=== PATIENT | female | born 1940 | race Caucasian/White ===

== ENCOUNTER → 2016-12-04 | Day surgery (SDC) | payer OTHER ==
[~2016-12-04] VITALS: Ht 157.4 cm; Wt 77.1 kg
[~2016-12-04] MED LIST: AMLODIPINE BESYL5 MG PO; ASPIRIN81 M1 PO; ATIVAN0.5 MG PO; ATORVASTATIN CA40 M1 PO; BIOTIN10000 MC1 PO; HYDRODIURIL25 MG PO; IBU800 M1 PO; Lopressor25 MG PO; OMEPRAZOLE40 MG PO; RANITIDINE HCL300 M2 PO; [UNRECOGNIZED DRUG - OTHER] PO; [UNRECOGNIZED DRUG - OTHER] PO
--- NOTE | ~2016-12-04 | O ---
[place], [place] OPERATIVE NOTE NAME: [facility]LDO DIAMOND [facility] [id number] UNIT #: [id number] ROOM: DOCTOR: KAREN SOTO MD BIRTHDATE: [birth year] DOS: 12/04/2016 PREOPERATIVE DIAGNOSIS: Cataract, right eye. POSTOPERATIVE DIAGNOSIS: Cataract, right eye. OPERATION: Extracapsular cataract extraction by phacoemulsification with posterior chamber intraocular lens implantation, right eye. ANESTHESIA: Monitored standby. OPERATIVE FINDINGS AND PROCEDURE: 2% Xylocaine topical anesthetic gel was applied to the eye in the preop area. The patient was taken to the operating room and prepped and draped in the standard fashion for sterile intraocular surgery. A time out procedure was performed verifying correct patient, correct site and corrects lens with Venita Soto M.D. The operating microscope was swung into position and the lid speculum was inserted. Using a Francine paracentesis blade, a paracentesis was made through clear cornea. Viscoelastic was used to fill the anterior chamber. Using a metal keratome a 2.4 mm self-sealing clear corneal cataract incision was made temporally at the limbus. Using a pre-bent 25 gauge cystotome needle, a standard continuous curvilinear capsulorrhexis was performed. The anterior capsule was removed with forceps. The lens nucleus was hydrodissected and phacoemulsified in the posterior chamber. Cortical material was removed with the irrigation aspiration hand piece and the posterior capsule was then polished with a curet under irrigation. The posterior chamber and capsular bag were filled with viscoelastic. A posterior chamber intraocular lens manufactured by: [employer], Model #[id number], and 18.5 diopters in strength were then inserted into the posterior chamber and within the capsular bag using the lens cartridge and injector system. Viscoelastic was removed using the irrigation aspiration handpiece. The anterior chamber was filled with balanced salt solution through the paracentesis. Both the paracentesis site and cataract incisions were hydrated with BSS and verified to be water-tight and self-sealing. The incision checked to be water-tight using a Weck-Farida sponge. The integrity of the cataract wound and ocular tension were checked. Lid speculum and drapes were removed. The patient was transferred from the operating room to the recovery room in satisfactory condition. [place], [place] OPERATIVE NOTE NAME: ARNALDO DIAMOND UNIT #: [id number] ROOM: DOCTOR: KAREN SOTO MD BIRTHDATE: [birth year] KAREN SOTO MD CM:OPRECORD:OPERATIVE NOTE [id number] [id number] KAREN SOTO MD 12/04/16 1436 interface
[2016-12-04 12:15] VITALS: BP 157/78
[2016-12-04 14:21] VITALS: BP 132/75
[2016-12-04 14:36] VITALS: BP 130/70
[2016-12-04 14:51] VITALS: BP 152/68
== END | disposition home or self-care (01) ==
LOC: SDC 12-03 13:15
DX: H26.9 Unspecified cataract (principal); M19.90 Unspecified osteoarthritis, unspecified site; F41.9 Anxiety disorder, unspecified; K21.9 Gastro-esophageal reflux disease without esophagitis; Z90.710 Acquired absence of both cervix and uterus; I10 Essential (primary) hypertension; I25.10 Atherosclerotic heart disease of native coronary artery without angina pectoris; I25.2 Old myocardial infarction